=== PATIENT | female | born 1960 | race Caucasian/White ===

== ENCOUNTER 2022-03-18 15:34 | Inpatient (IN) | payer OTHER ==
[~2022-03-18] VITALS: Ht 170.2 cm; Wt 82.6 kg
--- NOTE | 2022-03-18 15:55 | NUR ---
C/O ABDOMINAL PAIN PROBABLY RELATED TO DIVERTICULOSIS SHE HAD BEFORE
--- NOTE | 2022-03-18 16:37 | NUR ---
PT TAKEN TO CT
[2022-03-18 16:43] LABS: BASOPHILS % (AUTO) 0.4 % (0.0-2.0); EOSINOPHILS % (AUTO) 1.4 % (0.0-6.0); HEMATOCRIT 37 % (33-45); HEMOGLOBIN 12.3 g/dL (11.5-14.8); LYMPHOCYTES # (AUTO) 2.2 K/uL (0.8-4.8); LYMPHOCYTES % (AUTO) 23.2 % (20.0-44.0); MEAN CORPUSCULAR HGB CONC 33 g/dl (31.0-36.0); MEAN CORPUSCULAR VOLUME 99 fL (82-100); MONOCYTES # (AUTO) 0.7 K/uL (0.1-1.30); MONOCYTES % (AUTO) 7.2 % (2.0-12.0); NEUTROPHILS # (AUTO) 6.4 K/uL (1.8-8.9); NEUTROPHILS % (AUTO) 67.8 % (43.0-81.0); PLATELET COUNT (AUTO) 252 K/uL (150-450); RED BLOOD CELL COUNT(AUTO) 3.75 MIL/uL (4.0-5.2); WHITE BLOOD COUNT (AUTO) 9.4 K/uL (4.3-11.0)
[2022-03-18 16:49] LABS: CALCIUM, SERUM 8.9 mg/dL (8.5-10.1); CREATININE 1.1 mg/dL (0.6-1.3); POTASSIUM 3.8 mmol/L (3.5-5.1)
[2022-03-18 16:54] LABS: BILIRUBIN,URINE NEGATIVE (NEGATIVE); COLOR,URINE YELLOW (YELLOW); LEUKOCYTE ESTERASE ,URINE TRACE (NEGATIVE); NITRITE, URINE NEGATIVE (NEGATIVE); PH,URINE 5.5 (5.0-8.0); PROTEIN,URINE NEGATIVE (NEGATIVE); UGLUCOSE NEGATIVE (NEGATIVE); UROBILINOGEN,URINE 0.2 EU/dL (0.2)
[2022-03-18 16:55] LABS: ALBUMIN 3.4 g/dL (3.4-5.0); BILIRUBIN,DIRECT 0.2 mg/dL (0.0-0.2); BILIRUBIN,TOTAL 0.6 mg/dL (0.2-1.0); TOTAL PROTEIN, SERUM 7.1 g/dL (6.4-8.2)
[2022-03-18 16:59] LABS: BACTERIA,URINE Few /HPF (None Seen); SQUAMOUS EPITHELIAL CELL,UR Few /HPF (None Seen)
--- NOTE | 2022-03-18 17:26 | NUR ---
COVID TEST COLLECTED AND SENT
[2022-03-18] MEDS ORDERED: PIPERACILLIN /TAZOBACTAM 3.375 G in IV D5W 50 ML IV ONE (17:30)
--- NOTE | 2022-03-18 17:48 | NUR ---
MOVE SHEET SUBMITTED.
--- NOTE | 2022-03-18 17:51 | NUR ---
CALL LAB ONCE IV ESTABLISHED FOR BLOOD SAMPLE
--- NOTE | 2022-03-18 18:00 | NUR ---
ESTABLISHED IV LINE LEFT WRIST 20G
--- NOTE | 2022-03-18 18:05 | NUR ---
[facility] CALLED CHASSIS WIRER PAGED.
--- NOTE | 2022-03-18 19:28 | NUR ---
RECEIVED REPORT FROM CECI LUNSFORD. PATIENT IS FOR ADMISSION D/T DIVERTICULITIS. WAITING FOR ROOM AVAILABILITY. PATIENT IS AAOX4, ABLE TO MAKE NEEDS KNOWN. WITH IV CANNULA ON LEFT HAND G20. ATTACHED TO MONITOR. VITALS CHECKED.
[2022-03-18 20:00] VITALS: BP 113/63
[2022-03-18] MEDS ORDERED: MAGNESIUM HYDROXIDE 30 ML UDC PO PRN (20:30)
[2022-03-18] MEDS ORDERED: ACETAMINOPHEN 325 MG TABLET PO PRN (20:30)
[2022-03-18] MEDS ORDERED: MORPHINE SULFATE INJ 2 MG/ML DISP.SYRIN IV PRN (20:30)
[2022-03-18] MEDS ORDERED: ONDANSETRON HCL/PF 4 MG/2 ML VIAL IVP PRN (20:30)
[2022-03-18] MEDS ORDERED: HYDROCODONE/APAP 5/325MG TABLET PO PRN (20:30)
[2022-03-18] MEDS ORDERED: Z GUARD REMEDY 4 OZ OINT TP PRN (20:30)
[2022-03-18] MEDS ORDERED: MAG HYDROX/AL HYDROX/SIMETH 30 ML UDC PO PRN (20:30)
[2022-03-18] MEDS ORDERED: IV NS 0.9% 1,000 ML IV PRN (20:30)
[2022-03-18] MEDS ORDERED: ZOLPIDEM TARTRATE 5 MG TABLET PO PRN (20:30)
[2022-03-18] MEDS ORDERED: PIPERACILLIN /TAZOBACTAM 3.375 G in IV D5W 50 ML IV SCH (21:00)
--- NOTE | 2022-03-18 21:20 | NUR ---
REPORT GIVEN TO CECI GARRETT
[2022-03-18] MEDS ORDERED: MORPHINE SULFATE INJ 4 MG/ML DISP.SYRIN IV PRN (21:30)
--- NOTE | 2022-03-18 21:44 | NUR ---
TRANSFERRED TO 321 UNDER ACLS
--- NOTE | 2022-03-18 21:45 | NUR ---
BROUGHT PT TO ROOM
--- NOTE | 2022-03-18 22:00 | NUR ---
MS VEGETABLE PREPARER NOTE PATIENT ARRIVED FROM ER, PATIENT ALERT/ORIENTED X 4, PT ABLE TO MAKE NEEDS KNOWN. PATIENT STABLE ON RA, NO S/S OF DISTRESS OR SOB NOTED, BREATHING EVEN AND UNLABORED. PATIENT OBSERVED WALKING TO BED WITH STEADY GAIT. PER PATIENT ABDOMINAL PAIN BEGAN FRIDAY NIGHT AND PROGRESSIVELY GOT WORSE, PT REPORTS ABDOMINAL PAIN / AT THIS TIME. PATIENT REPORTS MD HX OF COLON CA S/P CHEMO CURRENTLY IN REMISSION, STATED SHE HAD A COLONOSCOPY RECENTLY WITH NO ADVERSE FINDINGS, HX OF DIVERTICULOSIS, SEPTIC SHOCK, SHINGLES, ARTHRITIS, LIVER RESECTION, GALLBLADDER REMOVAL AND LEFT WRIST PLATE. PATIENT STATES SHE HAS NO ALLERGIES TO MEDICATION, ALLERGIC TO AVOCADO. PT STATES SHE'S FULLY VACCINATED FOR COVID MODERNA X 2 HOWEVER DOESN'T REMEMBER DATES WHEN RECEIVED, PT REFUSES FLU VACCINE. PATIENT LIVES IN [place] AND VISITING FOR THE HOL[place]YS. IV ACCESS ON LEFT WRIST #20G INTACT AND FLUSHING WELL. PATIENT DENIES SMOKING AND DRUGS, OCCASIONAL GLASS OF RED WINE. PATIENT BELONGINGS DOCUMENTED AND SHEET PLACED IN CHART. ORIENTED PATIENT TO ROOM AND HOW TO USE CALL LIGHT. SAFETY MEASURES IN PLACE: CALL LIGHT WITHIN REACH, SIDE RAILS UP X 2, BED LOCKED IN LOWEST POSITION. WILL CONTINUE TO MONITOR PATIENT
--- NOTE | 2022-03-18 22:40 | NUR ---
MS RN NOTE CALLED PHARMACY BECAUSE PATIENT RECEIVED ZOSYN 3.375 G AT 1819 IN ER AND ZOSYN 3.375 G SCHEDULED FOR 2099. PER PHARMACIST, ZOSYN GIVEN IN ER WAS LOADING DOSE, SHOULD STILL GIVE SCHEDULED ZOSYN 3.375 G @ 25 ML/HR SCHEDULED FOR 2099 AT THIS TIME
[2022-03-18] MEDS: PIPERACILLIN /TAZOBACTAM 3.375 G in IV D5W 100 ML IV SCH (22:44)
[2022-03-19] MEDS: PIPERACILLIN /TAZOBACTAM 3.375 G in IV D5W 100 ML IV SCH ×3 (05:52→20:18)
[2022-03-19 06:21] LABS: BASOPHILS % (AUTO) 0.5 % (0.0-2.0); HEMATOCRIT 39 % (33-45); HEMOGLOBIN 12.8 g/dL (11.5-14.8); LYMPHOCYTES # (AUTO) 1.8 K/uL (0.8-4.8); LYMPHOCYTES % (AUTO) 34.3 % (20.0-44.0); MEAN CORPUSCULAR HGB CONC 33 g/dl (31.0-36.0); MEAN CORPUSCULAR VOLUME 100 fL (82-100); MONOCYTES # (AUTO) 0.5 K/uL (0.1-1.30); MONOCYTES % (AUTO) 9.7 % (2.0-12.0); NEUTROPHILS # (AUTO) 2.8 K/uL (1.8-8.9); NEUTROPHILS % (AUTO) 52.5 % (43.0-81.0); PLATELET COUNT (AUTO) 243 K/uL (150-450); RED BLOOD CELL COUNT(AUTO) 3.88 MIL/uL (4.0-5.2); WHITE BLOOD COUNT (AUTO) 5.3 K/uL (4.3-11.0)
[2022-03-19 06:29] LABS: ALBUMIN 3.1 g/dL (3.4-5.0); BILIRUBIN,TOTAL 0.6 mg/dL (0.2-1.0); MAGNESIUM 2.5 mg/dL (1.8-2.4); POTASSIUM 3.7 mmol/L (3.5-5.1); TOTAL PROTEIN, SERUM 6.7 g/dL (6.4-8.2)
--- NOTE | 2022-03-19 07:01 | NUR ---
MS RN CLOSING NOTE PATIENT ASLEEP IN BED, ALERT/ORIENTED X 4, PT ABLE TO MAKE NEEDS KNOWN. PATIENT STABLE ON RA, NO S/S OF DISTRESS OR SOB NOTED, BREATHING EVEN AND UNLABORED. PT SLEPT WELL THROUGH THE NIGHT. NO C/O ABDOMINAL PAIN. PATIENT KEPT NPO. IV ACCESS ON LEFT WRIST #20G INTACT AND INFUSING ZOSYN @ 25 ML/HR. PATIENT AMBULATORY WITH STEADY GAIT. SAFETY MEASURES IN PLACE: CALL LIGHT WITHIN REACH, SIDE RAILS UP X 2, BED LOCKED IN LOWEST POSITION. WILL ENDORSE TO DAYSHIFT RN FOR CONTINUITY OF CARE
--- NOTE | 2022-03-19 07:05 | NUR ---
MS RN OPENING NOTES: RECEIVED PT IN BED, AWAKE, ALERT AND ORIENTED X 4 AND ABLE TO VERBALIZED NEEDS. NO SOB OR CARDIAC DISTRESS NOTED, ON ROOM AIR AND TOLERATING WELL. DENIES ANY PAIN AT THIS TIME. MAINTAINED ON NPO. IV ACCESS ON LEFT WRIST GAUGE 20 PATENT AND INTACT AND INFUSING IV FLUIDS NS 1L @75ML/HR. SAFETY MEASURES MAINTAINED: BED LOCKED AND IN LOWEST POSITION, SIDE RAILS UP X 2. CALL LIGHT AND BED SIDE TABLE IN EASY REACH. WILL MONITOR PT ACCORDINGLY.
[2022-03-19 08:00] VITALS: BP 111/59
[2022-03-19] MEDS: PANTOPRAZOLE 40 MG VIAL IV SCH (08:38)
[2022-03-19] MEDS: METRONIDAZOLE 500MG/ NS 100ML 500 MG in PREMIX 1 EA IV SCH ×2 (11:08→17:29)
[2022-03-19 16:22] VITALS: BP 124/71
--- NOTE | 2022-03-19 17:30 | NUR ---
RN NOTES: PATIENT DID NOT COMPLAIN ANY ABDOMINAL PAIN, ABDOMINAL DISCOMFORT/ BELATEDNESS. TRIED TO HAD SIPS OF WATER AND TOLERATING WELL. INFORMED DR LADD PT IS NOT COMPLAINING OF ANY ABDOMINAL DISCOMFORTS, MD ORDERED TO START CLEAR LIQUID. ORDERS NOTED AND CARRIED OUT.
--- NOTE | 2022-03-19 18:52 | NUR ---
MS RN CLOSING NOTES: PT IN BED, AWAKE, ALERT AND ORIENTED X 4 AND ABLE TO VERBALIZED NEEDS. NO SOB OR CARDIAC DISTRESS NOTED, ON ROOM AIR AND TOLERATING WELL. DENIES ANY PAIN AT THIS TIME. ON CLEAR LIQUIDS ORDERED. IV ACCESS ON LEFT WRIST GAUGE 20 PATENT AND INTACT AND INFUSING IV FLUIDS NS 1L @75ML/HR. SAFETY MEASURES MAINTAINED: BED LOCKED AND IN LOWEST POSITION, SIDE RAILS UP X 2. CALL LIGHT AND BED SIDE TABLE IN EASY REACH. ENDORSED TO CASHIER SELF SERVICE GASOLINE NURSE FOR CONTINUITY OF CARE.
--- NOTE | 2022-03-19 19:05 | NUR ---
MS RN OPENING NOTES: PATIENT IS IN BED, AWAKE. ALERT AND ORIENTED, A/O X 4. SHE IS ABLE TO VERBALIZE HER NEEDS. SHE IS ON RA, NO SOB OR DISTRESS; TOLERATING WELL. PATIENT DENIES OF HAVING ANY PAIN . HER DIET HAS BEEN CHANGED INTO CLEAR LIQUID. IV ACCESS IS ON LEFT HAND, # 20G, RUNING NS @ 75 ML/HR. IV SITE IS PATENT AND INTACT. SAFETY MEASURES MAINTAINED: BED LOCKED AND IN LOW POSITION, SIDE RAILS UP X 2. CALL LIGHT AND BED SIDE TABLE IN REACH. WILL CONTINUE MONITORING PATIENT THROUGHOUT THE SHIFT.
[2022-03-19 20:00] VITALS: BP 115/70
[2022-03-20] MEDS: METRONIDAZOLE 500MG/ NS 100ML 500 MG in PREMIX 1 EA IV SCH ×2 (01:08→09:27)
[2022-03-20] MEDS: PIPERACILLIN /TAZOBACTAM 3.375 G in IV D5W 100 ML IV SCH (04:12)
[2022-03-20 06:01] LABS: BASOPHILS % (AUTO) 0.8 % (0.0-2.0); EOSINOPHILS % (AUTO) 2.4 % (0.0-6.0); HEMATOCRIT 38 % (33-45); HEMOGLOBIN 12.7 g/dL (11.5-14.8); LYMPHOCYTES % (AUTO) 19.8 % (20.0-44.0); MEAN CORPUSCULAR HGB CONC 34 g/dl (31.0-36.0); MEAN CORPUSCULAR VOLUME 100 fL (82-100); MONOCYTES # (AUTO) 0.4 K/uL (0.1-1.30); MONOCYTES % (AUTO) 8.5 % (2.0-12.0); NEUTROPHILS # (AUTO) 3.5 K/uL (1.8-8.9); NEUTROPHILS % (AUTO) 68.5 % (43.0-81.0); PLATELET COUNT (AUTO) 238 K/uL (150-450); RED BLOOD CELL COUNT(AUTO) 3.78 MIL/uL (4.0-5.2); WHITE BLOOD COUNT (AUTO) 5.1 K/uL (4.3-11.0)
[2022-03-20 06:34] LABS: ALBUMIN 3.1 g/dL (3.4-5.0); BILIRUBIN,TOTAL 0.4 mg/dL (0.2-1.0); CALCIUM, SERUM 9.3 mg/dL (8.5-10.1); MAGNESIUM 2.6 mg/dL (1.8-2.4); PHOSPHORUS 3.3 mg/dL (2.5-4.9); POTASSIUM 3.9 mmol/L (3.5-5.1); TOTAL PROTEIN, SERUM 6.8 g/dL (6.4-8.2)
--- NOTE | 2022-03-20 07:00 | NUR ---
MS RN OPENING NOTES: RECEIVED PT IN BED, AWAKE, ALERT AND ORIENTED X 4 AND ABLE TO VERBALIZED NEEDS. NO SOB OR CARDIAC DISTRESS NOTED, ON ROOM AIR AND TOLERATING WELL. DENIES ANY PAIN AT THIS TIME. ON CLEAR LIQUIDS. IV ACCESS ON LEFT WRIST GAUGE 20 PATENT AND INTACT AND INFUSING IV FLUIDS NS 1L @75ML/HR. SAFETY MEASURES MAINTAINED: BED LOCKED AND IN LOWEST POSITION, SIDE RAILS UP X 2. CALL LIGHT AND BED SIDE TABLE IN EASY REACH. WILL MONITOR PT ACCORDINGLY.
--- NOTE | 2022-03-20 07:20 | NUR ---
MS RN CLOSING NOTE PATIENT IS IN BED, SLEEPING. THROUGH THE SHIFT, PATIENT IS ABLE TO VERBALIZE HER NEEDS. SHE IS ON RA, NO SOB OR DISTRESS; TOLERATING WELL.NO S/S OF HAVING ANY PAIN . HER DIET HAS BEEN CHANGED INTO CLEAR LIQUID. IV ACCESS IS ON LEFT HAND, # 20G, RUNING NS @ 75 ML/HR. IV SITE IS PATENT AND INTACT. SAFETY MEASURES MAINTAINED: BED LOCKED AND IN LOW POSITION, SIDE RAILS UP X 2. CALL LIGHT AND BED SIDE TABLE IN REACH. WILL ENDORSE NEXT SHIFT NURSE FOR CONTINUING PATIENT CARE.
[2022-03-20 08:00] VITALS: BP 115/71
[2022-03-20] MEDS: PANTOPRAZOLE 40 MG VIAL IV SCH (08:32)
[2022-03-20] MEDS ORDERED: METR500T PO (12:13)
[2022-03-20] MEDS ORDERED: CIPR-262 PO (12:13)
--- NOTE | 2022-03-20 13:00 | NUR ---
GATE MORTISER OPERATOR NOTES: PATIENT DC HOME, PT ALERT AND ORIENTED X 4 AND ABLE TO VERBALIZED NEEDS. NO SOB OR CARDIAC DISTRESS NOTED, DENIES ANY ABDOMINAL PAIN/DISCOMFORTS AT THIS TIME. DC INSTRUCTIONS AND PACKET GIVEN TO PT AND VERBALIZED UNDERSTANDING. FOLLOW UPS INSTRUCTION AND SPECIAL DIET INSTRUCTIONS AND VERBALIZED UNDERSTANDING. IV ACCESS AND IDENTIFICATION BAND REMOVED. PT LEFT THE UNIT STABLE AND AMBULATORY PT PICKED UP BY JOHAN (DAUGHTER).
[2022-03-21] MEDS ORDERED: PANTOPRAZOLE 40 MG/PACK PACK PO SCH (09:00)
== END 2022-03-20 12:30 | disposition home or self-care (01) | DRG 392 ==
LOC: ER 15:34 → MED 20:56
PROVIDERS: ADMIT Nurse Practitioner Acute Care; ATTEND Nurse Practitioner Acute Care
DX: K57.20 Diverticulitis of large intestine with perforation and abscess without bleeding (principal); K44.9 Diaphragmatic hernia without obstruction or gangrene; Z93.3 Colostomy status; Z20.822 Contact with and (suspected) exposure to COVID-19; Z90.49 Acquired absence of other specified parts of digestive tract; Z85.038 Personal history of other malignant neoplasm of large intestine; K76.89 Other specified diseases of liver; N75.0 Cyst of Bartholin's gland
CPT/HCPCS: 36415; 80048-TC; 80053-TC; 80076-TC; 81001; 83605-TC; 83690-TC; 83735-TC; 84100-TC; 85025-TC; 87040-TC; 87081-TC; 87086-TC; A4216; C9113; C9803; G0378; J2543; J7030; J7060